=== PATIENT | male | born 1995 | race Asian ===

== ENCOUNTER 2018-04-05 20:28 | Emergency (ER) | payer OTHER ==
--- NOTE | 2018-04-05 21:19 | ED ---
Upper Extremity Pain - HPI Summary HPI Summary: This patient is a 23 year old M presenting to [facility] [place] [place] c/o left hand pain. Pt states a window fell on it yesterday mid-day. Since then he has had swelling and numbness in the hand. The patient rates the pain 4/10 in severity. The patient is right hand dominant. - History of Current Complaint Chief Complaint: EDExtremityUpper Stated Complaint: LT HAND INJURY Time Seen by Provider: 04/05/18 21:11 Hx Obtained From: Patient Mechanism Of Injury: Blunt Trauma, Direct Blow Onset/Duration: Started Days Ago - 1, Still Present Timing: Constant Severity Initially: Moderate Severity Currently: Moderate Pain Location: Hand - L Associated Signs & Symptoms: Positive: Swelling, Numbness/Tingling, Other - hand pain - Allergies/Home Medications Allergies/Adverse Reactions: Allergies Allergy/AdvReac Type Severity Reaction Status Date / Time No Known Allergies Allergy Verified 04/05/18 20:31 PMH/Surg Hx/FS Hx/Imm Hx Endocrine/Hematology History: Denies: Hx Blood Disorders, Hx Thyroid Disease Cardiovascular History: Denies: Hx Atrial Fibrillation, Hx Cardiomegaly Respiratory History: Denies: Hx Lung Cancer, Hx Pleural Effusion, Hx Pulmonary Embolism GI History: Denies: Hx Crohn's Disease Infectious Disease History: No Infectious Disease History: Denies: Traveled Outside the [place] in Last 30 Days - Family History Known Family History: Negative: Renal Disease, Respiratory Disease, Seizure Disorder - Social History Occupation: Student Lives: Dormitory/Roommates Alcohol Use: Occasionally Hx Substance Use: No Substance Use Type: Reports: None Hx Tobacco Use: No Smoking Status (MU): Never Smoked Tobacco Review of Systems Negative: Fever Positive: Edema, Other - L hand pain Positive: Other - abrasions All Other Systems Reviewed And Are Negative: Yes Physical Exam - Summary Physical Exam Summary: Appearance: Well appearing, no pain distress Skin: warm, dry, reflects adequate perfusion Head/face: normal Eyes: EOMI, LALO ENT: mucous membranes moist Neck: supple, non-tender Respiratory: CTA, breath sounds present Cardiovascular: RRR, pulses symmetrical Abdomen: non-tender, soft Bowel Sounds: present Musculoskeletal: Slight swelling of the left index and middle finger with abrasion on the dorsal PIP knuckle and volar PIP joint. Abrasion on the proximal volar phalanx of the index finger. No pain on flexor tendon. No pain with passive ROM. Mild redness. Neuro: normal, sensory motor intact, A&Ox3 Triage Information Reviewed: Yes Vital Signs On Initial Exam: Initial Vitals Temp Pulse Resp BP Pulse Ox 98 F 95 16 147/82 97 04/05/18 20:28 04/05/18 20:28 04/05/18 20:28 04/05/18 20:28 04/05/18 20:28 Vital Signs Reviewed: Yes Diagnostics - Vital Signs Vital Signs Temp Pulse Resp BP Pulse Ox 04/05/18 20:28 98 F 95 16 147/82 97 - Laboratory Lab Statement: Any lab studies that have been ordered have been reviewed, and results considered in the medical decision making process. - Radiology hand xray Radiology Interpretation Completed By: ED Physician Summary of Radiographic Findings: No fracture seen. Pending official report. Course/Dx - Course Course Of Treatment: X-rays of the hand are negative. Minor swelling. Full range of motion. No sign of tenosynovitis. No Knavels signs. Likely neuropraxia due to contusion. Follow up with primary care. Keflex started here given abrasions. - Diagnoses Provider Diagnoses: Finger contusion, Abrasion, Hand paresthesia Discharge - Sign-Out/Discharge Documenting (check all that apply): Patient Departure - Discharge Plan Condition: Improved Disposition: HOME Prescriptions: Cephalexin CAP* [Keflex CAP*] 500 mg PO TID #18 cap Patient Education Materials: Contusion in Adults (ED) Referrals: [facility] [Provider Group] Additional Instructions: Follow-up with [facility]. Return with concerns for infection to include increased redness, swelling, drainage from the wound, persistent/worsening numbness, worse or other concerns. Dress with Neosporin and a Band-Aid. Keep elevated at rest. - Billing Disposition and Condition Condition: IMPROVED Disposition: Home - Attestation Statements Document Initiated by Scribe: Yes Documenting Scribe: John Braga Provider For Whom Nathan is Documenting (Include Credential): Dionisio Vela MD Scribe Attestation: John Street scribed for Dionisio Vela MD on 04/05/18 at 2124. Scribe Documentation Reviewed: Yes Provider Attestation: The documentation as recorded by the John amaral accurately reflects the service I personally performed and the decisions made by me, Dionisio Vela MD Status of Nathan Document: Viewed
[2018-04-05] MEDS ORDERED: Cephalexin CAP* 500 MG PO ONE (21:21)
[2018-04-05 21:37] VITALS: BP 131/77
== END 2018-04-05 21:36 | disposition home or self-care (01) ==
LOC: ED 20:28
DX: S60.022A Contusion of left index finger without damage to nail, initial encounter (principal); S60.032A Contusion of left middle finger without damage to nail, initial encounter; W22.8XXA Striking against or struck by other objects, initial encounter; Y92.9 Unspecified place or not applicable; R20.2 Paresthesia of skin
CPT/HCPCS: 99282; A9270-GY